=== PATIENT | male | born 1995 | race Caucasian/White ===

== ENCOUNTER 2020-10-04 09:21 | Emergency (ER) | payer SELFPAY ==
[2020-10-04 09:29] VITALS: BP 160/108; PULSE 100; RESP 18; TEMP 36.8; O2SAT 96; BMI 29.0
--- NOTE | 2020-10-04 09:44 | W.ED.BACK ---
HPI - Back Pain/Injury General: Chief Complaint: Back Pain/Injury Stated Complaint: BACK PAIN Time Seen by Provider: 10/04/20 09:41 History of Present Illness: HPI Narrative: This patient is a 25-year-old male who presents to the emergency department with a complaint of low back pain for the past 2 to 3 days. Patient states she has had history of some mild discomfort from time to time but woke up the other day and having significant pain if he tries to bend over. Patient denies any type sciatica type issues and denies any recent injury. MD elicited complaint: back pain Pertinent past history: prior back pain Similar Symptoms Previously: Yes Location: lumbar spine Radiation: none Associated symptoms: Deny abdominal pain, chills, dysuria, fatigue, fever(s), nausea, urinary urgency or vomiting Review of Systems General: Reports: 10 or more systems reviewed and unremarkable except in HPI and below Const: Denies: fever(s), chills, body aches or fatigue Eyes: Denies: change in vision or blurry vision ENMT: Denies: throat pain, hoarseness or mouth pain Card: Denies: chest pain, palpitations, irregular heart rhythm, edema, swelling of feet/ankles or lightheadedness Resp: Denies: dyspnea, productive cough, non-productive cough, wheezing or pain on inspiration GI: Denies: abdominal pain, nausea or vomiting : Denies: flank pain, dysuria, urinary frequency, urinary urgency or urinary hesitancy Musc: Denies: neck pain, back pain, extremity pain, extremity swelling, joint pain, joint swelling, joint redness, joint warmth or limited range of motion Skin/Breast: Denies: rash, pruritus, erythema or skin tenderness Neuro: Denies: headache(s), numbness in extremities or weakness in extremities Psych: Denies: anxiety or depression Physical Exam Const: COMMON NORMALS: no acute distress, average body habitus, patient oriented x3, no limitations, healthy appearing, alert and well nourished HENMT: COMMON NORMALS: normocephalic, atraumatic, hearing grossly normal bilaterally, external ears normal, EAC's normal, TM's normal bilaterally, Normal external nose present, Normal nasal mucous membranes and turbinates present, moist oral mucous membranes, oropharynx normal, dentition normal and gingiva normal HEAD & SCALP: normocephalic and atraumatic NOSE: Normal external nose present and Normal nasal mucous membranes and turbinates present EXTERNAL EAR: Yes external ears normal EXTERNAL AUDITORY CANAL: EAC's normal TYMPANIC MEMBRANE: TM's normal bilaterally Neck/C-Spine: COMMON NORMALS: full ROM, no lymphadenopathy, supple, no meningeal signs, no JVD, Thyroid normal and No carotid bruits THYROID: Thyroid normal Chest: COMMONS NORMALS: normal inspection of the chest, normal palpation of entire chest wall, normal inspection of the breasts and normal palpation of the breasts Breast/axilla inspection: Yes normal inspection of the breasts BREAST/AXILLA PALPATION: Yes normal palpation of the breasts Resp: COMMON NORMALS: normal respiratory effort, No retractions, No use of accessory muscles, clear to auscultation bilaterally and percussion normal AUSCULTATION: clear to auscultation bilaterally PERCUSSION: percussion normal Cardio: COMMON NORMALS: no JVD, regular rate, regular rhythm, S1 normal heart sound present, S2 normal heart sound present, No gallops present (Cardio), No clicks present (Cardio), No murmurs present (Cardio), No rub (Cardio) and Peripheral pulses 2+ throughout RATE: regular rate RHYTHM: regular rhythm HEART SOUNDS: S1 normal heart sound present and S2 normal heart sound present PERIPHERAL PULSES: Peripheral pulses 2+ throughout GI: COMMON NORMALS: Normal to inspection, nondistended, normoactive bowel sounds present, Soft to palpation, non-tender, No hepatosplenomegaly present, no masses and no bruits PALPATION: Yes Soft to palpation and Yes No hepatosplenomegaly present : COMMON NORMALS: Yes no CVA tenderness BLADDER/KIDNEY EXAM: Yes no CVA tenderness Back/Pelvis: COMMON NORMALS: no CVA tenderness, thoracic and lumbar spine normal to inspection, thoraco-lumbar ROM normal and straight leg raise negative bilaterally LUMBAR SPINE/LOWER BACK: Yes pain with ROM and Yes paraspinal muscle spasm Extremity: COMMON NORMALS: normal to inspection, full ROM, capillary refill normal, no joint enlargement, no clubbing, cyanosis or edema, no calf tenderness and no pedal edema Neuro: COMMON NORMALS: patient oriented x3 SENSORIUM/ORIENTATION: Yes alert MENINGEAL SIGNS: Yes no meningeal signs Course Reevaluation(s): Reevaluation #1: Encourage p.o. fluids. Stretching exercises as indicated. Take medications as prescribed. Follow-up with your primary care physician in 5 to 7 days if not improved. May need outpatient imaging via MRI. Time: 09:46 Vital Signs: Vital signs: Vital Signs Temperature 98.2 F 10/04/20 09:29 Pulse Rate 100 10/04/20 09:29 Respiratory Rate 18 10/04/20 09:29 Blood Pressure 160/108 10/04/20 09:29 Pulse Oximetry 96 10/04/20 09:29 MDM - Back Pain/Injury MDM Narrative: Medical decision making narrative: Encourage p.o. fluids. Stretching exercises as indicated. Take medications as prescribed. Follow-up with your primary care physician in 5 to 7 days if not improved. May need outpatient imaging via MRI. Differential Diagnosis: Differential diagnosis back pain/injury: Likely lumbar radiculopathy and strain of lumbar region Medical Records: Attestation: I reviewed the patient's medical records. Lab Data: Attestation: I reviewed the patient's lab results. Discharge Plan Discharge Patient Disposition: Home Clinical Impression: Strain of lumbar region Condition: Stable Prescriptions: New diclofenac sodium 75 mg tablet,delayed release (DR/EC) 75 mg PO BID PRN (Reason: pain) Qty: 20 RF: 0 Discharge Orders: Discharge ED (Routine); Ordered 10/04/20 Ordered By: Terrance Lopez Referrals: Leslie Cohn, CONSTRUCTION PRODUCER-C [Primary Care Provider] - Discharge Diet: Advance as tolerated Discharge Activity: Increase activity as tolerated Patient Instructions: Opioid Safety Activity Restrictions/Additional Instructions: Encourage p.o. fluids. Stretching exercises as indicated. Take medications as prescribed. Follow-up with your primary care physician in 5 to 7 days if not improved. May need outpatient imaging via MRI. Coding Level of Care Code ED Material Distributor for Aj Tolentino
[2020-10-04] MEDS: orphenadrine 30 mg/mL Inj 2 mL 60 MG IM (09:54)
[2020-10-04 10:09] VITALS: PULSE 96; RESP 18; O2SAT 97
== END 2020-10-04 10:10 | disposition home or self-care (01) ==
PROVIDERS: Emergency Provider Emergency Medicine; PCP Nurse Practitioner
DX: S39.012A Strain of muscle, fascia and tendon of lower back, initial encounter (principal); X58.XXXA Exposure to other specified factors, initial encounter
CPT/HCPCS: 96372; 99283; J2360

== ENCOUNTER 2022-12-09 19:43 | Inpatient (IN) | payer SELFPAY ==
[2022-12-09 20:01] VITALS: BMI 28.8
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
[2022-12-09 20:16] VITALS: BP 171/121; PULSE 86; RESP 16; TEMP 36.5; O2SAT 98
--- NOTE | 2022-12-09 20:37 | PC.NURSE ---
96 hour hold rights reviewed and copy given to patient. Patient verbalized understandings.
[2022-12-09 20:39] LABS: Basophils # 0.1 10^3/uL (0.0-0.1); Basophils % 0.5 %; Eosinophils % 0.1 %; Hemoglobin 15.9 g/dL (11.7-16.6); Lymphocytes # 1.3 10^3/uL (0.8-4.8); Lymphocytes % 12.4 %; Mean Corpuscular HGB Conc 33.8 g/dL (30.0-36.0); Mean Corpuscular Hemoglobin 31.7 pg (28.0-34.0); Mean Corpuscular Volume 93.6 fl (80-94); Mean Platelet Volume 9.7 fL (7.4-10.4); Monocytes # 0.7 10^3/uL (0.2-0.9); Monocytes % 6.9 %; Neutrophils # 8.58 10^3/uL (1.8-7.7); Neutrophils % 79.6 %; Nucleated Red Blood Cells % 0 %; Platelet Count 248 10^3/cmm (130-400); Red Blood Count 5.02 10^6/uL (4.1-5.3); Red Cell Distribution Width 12.8 % (12.1-15.1); White Blood Count 10.8 10^3/uL (4.0-10.0)
[2022-12-09 21:09] LABS: Alanine Aminotransferase 101 U/L (0-41); Albumin Level 4.8 g/dL (3.5-5.2); Alkaline Phosphatase 148 U/L (40-130); Anion Gap 18.5 (5-19); Aspartate Amino Transferase 64 U/L (0-40); Blood Urea Nitrogen 13 mg/dL (6-20); Calcium 9.8 mg/dL (8.5-10.5); Carbon Dioxide 24 mmol/L (22-29); Chloride 103 mmol/L (98-107); Globulin 3.1 g/dL (1.3-4.6); Glomerular Filtration Rate 101.2 mL/min (90-130); Glucose 126 mg/dL (65-115); Osmolality Calculated 296 mOsm/kg (285-295); Potassium 3.5 mmol/L (3.5-5.1); Salicylate 0.7 mg/dL (3-10); Sodium 142 mmol/L (136-145); Total Bilirubin 0.7 mg/dL (0.15-1.2); Total Protein 7.9 g/dL (6.6-8.7)
[2022-12-09 21:13] LABS: Acetaminophen < 5.0 ug/mL (10-30); Alcohol Level < 10 mg/dL (0-10)
[2022-12-09 21:14] LABS: Amphetamines Screen Urine Negative (Negative); Barbiturates Screen Urine Negative (Negative); Benzodiazepines Screen Urine Negative (Negative); Cocaine Screen Urine Negative (Negative); Opiate Screen Urine Negative (Negative); PCP Screen Urine Negative (Negative); THC Screen Urine Positive (Negative)
[2022-12-09 21:48] VITALS: BP 169/111; PULSE 96; RESP 19; TEMP 36.6; O2SAT 94
[2022-12-09 22:00] VITALS: BP 158/108; PULSE 96; RESP 18; TEMP 36.6; O2SAT 94
[2022-12-10] MEDS: LORazepam 2 mg Tablet PO (01:04)
[2022-12-10 06:00] VITALS: RESP 18
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
[2022-12-10] MEDS: multivitamin therapeutic Tablet 1 TAB PO (08:34)
[2022-12-10] MEDS: folic acid 1 mg Tablet PO (08:35)
[2022-12-10] MEDS: thiamine 100 mg Tablet PO (08:35)
[2022-12-10 14:00] VITALS: BP 124/84; PULSE 102; RESP 17; TEMP 37; O2SAT 96
[2022-12-10 22:00] VITALS: BP 142/92; PULSE 97; RESP 18; TEMP 36.8; O2SAT 96
[2022-12-11 06:00] VITALS: BP 148/84; PULSE 82; RESP 17; O2SAT 98
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
[2022-12-11] MEDS: multivitamin therapeutic Tablet 1 TAB PO (08:31)
[2022-12-11] MEDS: folic acid 1 mg Tablet PO (08:31)
[2022-12-11] MEDS: thiamine 100 mg Tablet PO (08:31)
--- NOTE | 2022-12-11 11:39 | PC.NURSE ---
Patient denies all for this nurse. Patient stated that he is trying to keep himself busy by watching TV and doing crossword puzzles so he doesnt' think about what happened.
[2022-12-11 14:00] VITALS: BP 154/98; PULSE 87; RESP 20; TEMP 36.6; O2SAT 97
[2022-12-11] MEDS: trazodone 50 mg Tablet PO (20:05)
[2022-12-11] MEDS: acetaminophen 325 mg Tablet 650 MG PO (20:06)
[2022-12-11 20:20] VITALS: BP 160/96; PULSE 92; RESP 15; TEMP 36.8; O2SAT 95
[2022-12-12 06:00] VITALS: BP 130/84; PULSE 96; RESP 16; TEMP 36.6; O2SAT 97
[2022-12-12] MEDS: multivitamin therapeutic Tablet 1 TAB PO (08:32)
[2022-12-12] MEDS: thiamine 100 mg Tablet PO (08:32)
[2022-12-12] MEDS: folic acid 1 mg Tablet PO (08:32)
--- NOTE | 2022-12-12 09:04 | PC.NURSE ---
During morning assessment, patient stated that he is good . He denied SI, HI, AVH, anxiety, and depression. This nurse asked if he wanted to talk about anything. Patient stated that he didn't want to think about anything because he didn't want to hurt himself or anybody else by talking about it. Patient teary-eyed while smiling when saying this. Patient stated that he is distracting himself by watching movies
[2022-12-12 14:00] VITALS: BP 144/98; PULSE 97; RESP 20; TEMP 36.4; O2SAT 98
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
[2022-12-12] MEDS: trazodone 50 mg Tablet PO (19:59)
[2022-12-12 20:23] VITALS: BP 141/104; PULSE 95; RESP 18; TEMP 36.8; O2SAT 97
[2022-12-13 06:00] VITALS: BP 143/108; PULSE 108; RESP 18; O2SAT 99
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
[2022-12-13] MEDS: multivitamin therapeutic Tablet 1 TAB PO (08:10)
[2022-12-13] MEDS: folic acid 1 mg Tablet PO (08:10)
[2022-12-13] MEDS: thiamine 100 mg Tablet PO (08:10)
[2022-12-13 08:24] VITALS: BP 143/108; PULSE 108; RESP 18; O2SAT 99
== END 2022-12-13 08:57 | disposition home or self-care (01) | DRG 882 ==
LOC: ER 20:09 → NP 20:55
PROVIDERS: Admitting Provider Psychiatry & Neurology Psychiatry; Emergency Provider Emergency Medicine; PCP Nurse Practitioner; Visit Provider Psychiatry & Neurology Psychiatry
DX: F43.25 Adjustment disorder with mixed disturbance of emotions and conduct (principal); R45.851 Suicidal ideations; F10.90 Alcohol use, unspecified, uncomplicated; F12.90 Cannabis use, unspecified, uncomplicated; Z81.8 Family history of other mental and behavioral disorders; Z81.3 Family history of other psychoactive substance abuse and dependence; Z63.4 Disappearance and death of family member
CPT/HCPCS: 36415; 80053; 80306; 80307; 85025; 90935; 96372; 99238; 99285; J3411

== ENCOUNTER 2022-12-14 16:31 | Emergency (ER) | payer SELFPAY ==
[2022-12-14 16:37] VITALS: BP 167/107; PULSE 87; RESP 16; TEMP 36.6; O2SAT 97; BMI 27.1
--- NOTE | 2022-12-14 17:04 | XRR_ITS ---
PROCEDURE INFORMATION: Exam: XR Left Ribs with PA Chest Exam date and time: 12/14/2022 5:13 PM Age: 27 years old Clinical indication: Chest wall pain; Left; Additional info: Left rib pain, TECHNIQUE: Imaging protocol: Radiologic exam of the left ribs with PA chest. Views: 3 views COMPARISON: No relevant prior studies available. FINDINGS: Lungs: Unremarkable. No consolidation. Pleural spaces: Unremarkable. No pleural effusion. No pneumothorax. Heart/Mediastinum: Unremarkable. No cardiomegaly. Bones/joints: No evidence of left rib fracture. XR/XR ribs LT mn 3V w CXR1V [id number] IMPRESSION: No acute findings.
--- NOTE | 2022-12-14 17:04 | ED_ITS ---
HPI - SOB/Dyspnea General: Chief Complaint: Shortness of Breath/Dyspnea Stated Complaint: left side pain, sob Time Seen by Provider: 12/14/22 17:03 History of Present Illness: HPI Narrative: 27-year-old male patient comes in with left rib pain and difficulty with taking a deep breath. Patient denies any falls or injuries. Patient reports that he was very upset the other day and screamed loudly. Since then patient has had increased pain and discomfort to his left rib area. Patient appears nontoxic. Patient does have a history of adjustment disorder and alcohol substance use disorder. Patient denies any alcohol or drug use at this time. Patient reports no chronic medications. Associated symptoms: Reports chest pain (Left rib pain); Deny nausea or vomiting Review of Systems General: Reports: 10 or more systems reviewed and unremarkable except in HPI and below Card: Reports: chest pain (Left rib pain) Resp: Reports: pain on inspiration GI: Denies: nausea, vomiting, diarrhea or constipation : Denies: difficulty urinating Musc: Reports: back pain (Left posterior ribs) Physical Exam Const: COMMON NORMALS: alert HENMT: COMMON NORMALS: normocephalic HEAD & SCALP: normocephalic Neck/C-Spine: COMMON NORMALS: full ROM Chest: CHEST: Yes tenderness (Left posterior ribs) Resp: COMMON NORMALS: normal respiratory effort and clear to auscultation bilaterally AUSCULTATION: clear to auscultation bilaterally Cardio: COMMON NORMALS: regular rate and regular rhythm RATE: regular rate RHYTHM: regular rhythm GI: COMMON NORMALS: Soft to palpation and non-tender PALPATION: Yes Soft to palpation : COMMON NORMALS: Yes no CVA tenderness BLADDER/KIDNEY EXAM: Yes no CVA tenderness Back/Pelvis: COMMON NORMALS: no CVA tenderness and thoracic and lumbar spine normal to inspection Extremity: COMMON NORMALS: normal to inspection Neuro: SENSORIUM/ORIENTATION: Yes alert Skin: COMMON NORMALS: turgor normal GENERAL SKIN EXAM: turgor normal Course Vital Signs: Vital signs: Vital Signs Temperature 97.9 F 12/14/22 16:37 Pulse Rate 87 12/14/22 16:37 Respiratory Rate 16 12/14/22 16:37 Blood Pressure 167/107 12/14/22 16:37 Pulse Oximetry 97 12/14/22 16:37 Oxygen Delivery Me thod Room Air 12/14/22 16:37 MDM - SOB/Dyspnea Medical Decision Making 27-year-old male patient comes in today with complaints of left posterior rib pain and increased pain with inspiration. On exam abdomen soft nontender. Lungs are clear to auscultation. Pain is elicited with deep inspiration and palpation of the posterior left ribs. No crepitus or subcu emphysema is noted. Skin is warm and dry. Vital signs are normal except for some mild elevation in blood pressure. Differential diagnosis includes but not limited to pneumothorax, costochondritis, rib fracture, pneumonia. X-ray of the ribs indicated no fracture, x-ray of the chest indicated no pneumothorax. Reviewed exam with patient and family with recommendations for treatment with steroids and NSAIDs. Patient was written prescriptions and recommended to follow-up with primary care. Discharge Plan Discharge Patient Disposition: Home Clinical Impression: Costochondral chest pain Condition: Stable Prescriptions: New diclofenac sodium 75 mg tablet,delayed release (DR/EC) 75 mg PO BID Qty: 20 0RF Discharge Orders: Discharge ED (Routine); Ordered 12/14/22 Ordered By: Hal Min Referrals: Leslie Cohn, JARRET [Primary Care Provider] - Discharge Diet: Usual diet Discharge Activity: Increase activity as tolerated Patient Instructions: Costochondritis (ED) Activity Restrictions/Additional Instructions: Activity as tolerated. Gentle stretching and range of motion exercises. Use ice or heat to the area for further comfort relief. Take diclofenac sodium 75 mg 1 tablet twice a day for next 10 days. Use acetaminophen for further pain relief. Do not use ibuprofen or naproxen while using diclofenac. Follow-up with primary care for further instructions. Return to ED for worsening symptoms such as high fever greater than 100.4, increasing shortness of breath, or new concerns. Coding Level of Care Code ED Boiler House Supervisor for Aj Tolentino
[2022-12-14] MEDS: ketorolac 60 mg/2 mL INJ 30 MG IM (17:56)
[2022-12-14] MEDS: dexamethasone 10 mg/mL INJ IM (17:57)
== END 2022-12-14 18:01 | disposition home or self-care (01) ==
PROVIDERS: Emergency Provider Nurse Practitioner Family; PCP Nurse Practitioner
DX: R07.89 Other chest pain (principal)
CPT/HCPCS: 71101; 96372; 99284; J1100; J1885